=== PATIENT | male | born 1980 | race American Indian/Alaskan Native ===

== ENCOUNTER 2018-01-04 23:56 | Emergency (ER) | payer OTHER ==
[2018-01-05 00:16] VITALS: BP 143/69
[2018-01-05] MEDS ORDERED: MOTRIN PO ONE (01:08)
--- NOTE | 2018-01-05 01:47 | XRay Report ---
FINAL REPORT EXAM: XR SPINE LUMBOSACRAL 2-3V HISTORY: lower back pain COMPARISON: None available. FINDINGS: Two views of the lumbar spine obtained. Mild loss of disc height L5-S1 level. Remaining disc heights are preserved. Pedicles are intact. No spondylolisthesis. IMPRESSION: Lumbar vertebral body heights are preserved. Mild focal degenerative changes L5-S1 level.
--- NOTE | 2018-01-05 01:48 | XRay Report ---
FINAL REPORT EXAM: XR SHOULDER 2+V LT HISTORY: left shoulder pain COMPARISON: None available. FINDINGS: Three views of the left shoulder obtained. Bony structures are intact. Joint spaces are preserved. No acute fracture dislocation. IMPRESSION: No acute bony abnormality.
--- NOTE | 2018-01-05 02:23 | Cat Scan Report ---
FINAL REPORT EXAM: CT HEAD/BRAIN WO CON HISTORY: neck pain and headache COMPARISON: None available. TECHNIQUE: Axial images obtained skull base through vertex. FINDINGS: No acute intracranial hemorrhage, midline shift or pathologic extra axial fluid collection. Ventricles and cisterns are normal in size and configuration for the patient's age. Hartley-white differentiation preserved. Calvarium grossly intact. Cavum septum pellucidum is present, benign finding. Small retention cyst or polyp at the posterior margin right maxillary sinus. Mastoid air cells are clear. Ocular globes are grossly unremarkable. IMPRESSION: No grossly acute intracranial abnormality.
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
[2018-01-05] MEDS ORDERED: TORADOL IV ONE (02:36)
[2018-01-05] MEDS ORDERED: REGLAN IV ONE (02:37)
[2018-01-05] MEDS ORDERED: BENADRYL IV ONE (02:37)
[2018-01-05] MEDS ORDERED: BENADRYL PO ONE ×2 (02:42→02:44)
[2018-01-05] MEDS ORDERED: REGLAN PO ONE (02:42)
[2018-01-05] MEDS ORDERED: REGLAN ONE (02:44)
== END 2018-01-05 02:50 | disposition home or self-care (01) ==
LOC: ED 23:56
DX: S39.012A Strain of muscle, fascia and tendon of lower back, initial encounter (principal); S46.912A Strain of unspecified muscle, fascia and tendon at shoulder and upper arm level, left arm, initial encounter; F17.200 Nicotine dependence, unspecified, uncomplicated; V89.2XXA Person injured in unspecified motor-vehicle accident, traffic, initial encounter; Y93.89 Activity, other specified; Y92.488 Other paved roadways as the place of occurrence of the external cause; Y99.8 Other external cause status
CPT/HCPCS: 70450; 72100; 72125; 99284

== ENCOUNTER 2021-02-07 13:02 | Outpatient (CLI) | payer OTHER ==
--- NOTE | 2021-02-07 14:03 | XRay Report ---
CERVICAL SPINE 3 VIEWS INDICATION: Neck pain. COMPARISON: None. IMPRESSION: Normal alignment. No significant discogenic DJD or facet arthropathy. No acute osseous or soft tissue abnormality. LUMBOSACRAL SPINE 3 VIEWS INDICATION: BACK PAIN. COMPARISON: None. IMPRESSION: Normal alignment. Mild to moderate disc space narrowing is identified at L5-S1. The rem aining levels are unremarkable. The facet joints are within normal limits. There are mild symmetric d egenerative changes at the SI joints. No acute osseous or soft tissue abnormality. Signer Name: Olaf Saleh Jr, MD Signed: 02/07/2021 1:59 PM Workstation Name: [id number]
== END 2021-02-07 13:03 | disposition home or self-care (01) ==
LOC: XRAY 13:02
PROVIDERS: ATTEND Internal Medicine
DX: M47.817 Spondylosis without myelopathy or radiculopathy, lumbosacral region (principal); M47.898 Other spondylosis, sacral and sacrococcygeal region; M54.2 Cervicalgia
CPT/HCPCS: 72040; 72100